=== PATIENT | male | born 1985 | race Hispanic/Latino ===

== ENCOUNTER 2020-03-22 20:12 | Emergency (ER) | payer SELFPAY ==
[~2020-03-22] VITALS: Ht 170.2 cm; Wt 75.9 kg
[2020-03-22] MEDS ORDERED: BACTRIM DS1 TAB PO (20:38)
[2020-03-22 20:50] VITALS: BP 141/89
== END 2020-03-22 20:50 | disposition home or self-care (01) | DRG 603 ==
LOC: ED 20:12
DX: L02.31 Cutaneous abscess of buttock (principal)